=== PATIENT | female | born 1960 | race Caucasian/White ===

== ENCOUNTER → 2017-09-23 | Day surgery (SDC) | payer MEDICAID ==
[~2017-09-23] VITALS: Ht 162.6 cm; Wt 60.0 kg
[~2017-09-23] MED LIST: ALBU8.5H8 IH; BENZOCAINE 20% 50 MCG/SPRAY 57 GM ONE; DIPH25 PO; FLUT16H NASAL; FentaNYL CITRATE-PF 100 MCG/2 ML VIAL ONE; GABA-531 PO; LIDOCAINE HCL 2% 30 ML JELLY ONE; LIDOCAINE HCL 4% 50 ML SOLUTION ONE; LORA0.5T2 PO; METO-296 PO; MIDAZOLAM HCL 2 MG/2 ML VIAL ONE; MONT10TA21 PO; MethylPREDNISolone SOD SUCC 125 MG/2 ML VIAL IVP ONE; MethylPREDNISolone SOD SUCC 125 MG/2 ML VIAL ONE; OXYGEN THERAPY IH SCH; SODIUM CHLORIDE 0.9% 1,000 ML IV ONE; TRAM50TA4 PO
== END | disposition home or self-care (01) ==
LOC: SURGERY 06:40
PROVIDERS: ATTEND Internal Medicine Critical Care Medicine
DX: J38.4 Edema of larynx (principal); B37.0 Candidal stomatitis; J84.111 Idiopathic interstitial pneumonia, not otherwise specified; Z88.5 Allergy status to narcotic agent; Z91.041 Radiographic dye allergy status; Z87.891 Personal history of nicotine dependence; Z88.3 Allergy status to other anti-infective agents; Z90.49 Acquired absence of other specified parts of digestive tract; Z79.891 Long term (current) use of opiate analgesic; Z79.52 Long term (current) use of systemic steroids; Z98.890 Other specified postprocedural states; Z79.899 Other long term (current) drug therapy
CPT/HCPCS: 31623; 31624; 71045; 87015; 87070; 87205; 87206; 87220; 88108; 88312; J2250; J2930; J3010; J7030